=== PATIENT | male | born 1950 | race Caucasian/White ===

== ENCOUNTER 2023-03-18 01:15 | Emergency (ER) | payer OTHER ==
--- OUTSIDE RECORDS SUMMARY | 2023-03-18 01:19 | XMS REPORT | Continuity of Care Document ---
:1950 Author Organization [facility] Address [address] [facility] [address] [place] [address] Care Team Providers Name Role Phone ALEJO TINAJERO Attending Clinician Unavailable Anibal Zuleta Attending Clinician Unavailable Alejo Tinajero MD Attending Clinician Only, Adc Test Attending Clinician Unavailable Owen Linton MD Attending Clinician Naina Barnes RN Attending Clinician Unavailable Pob, Adc Lab Main Attending Clinician Unavailable Doctor Unassigned, [place] Attending Clinician Unavailable ALEJO TINAJERO Admitting Clinician Unavailable Benji Acosta Admitting Clinician Unavailable Alejo Tinajero MD Admitting Clinician Payers Payer Name Policy Type Policy Number Effective Date Expiration Date Amie almeida MEDICARE PART A [id number] 2013 \T\ B 00:00:00 [employer] INDEMNITY [id number] 2013 00:00:00 Problems This patient has no known problems. Allergies, Adverse Reactions, Alerts Allergy Allergy Status Severity Reaction(s) Onset Inactive Treating Comm ents Source Name Type Date Date Clinician NO KNOWN Drug Active [facility] Social History Social Habit Start Date Stop Date Quantity Comments Source Exposure to Not sure [facility] SARS-CoV-2 (event) Medica l Branch Sex Assigned At [facility] Tobacco use and 2020-06-01 2020-06-01 Never used [facility] [place] exposure 00:00:00 00:00:00 Medical Branch Smoking Status Start Date Stop Date Source Unknown if ever smoked [facility]it [facility] [place] Medical Branch Never smoker [facility] Medical Branch Medications Ordered Filled Start Stop Current Ordering Indication Dosage Frequency Signature Comments Components Source Medication Medication Date Date Medication? Clinician (SIG) Name Name losartan 50 2020-0 Yes 50mg Take 50 mg Univers mg tablet 9-16 by mouth ity of 17:16: daily. [place] 14 Indication Medical s: htn Branch ezetimibe 2020-0 Yes 10mg Take 10 mg Un rivka 10 mg 9-16 by mouth ity of tablet 17:16: at [place] 14 bedtime. Medical Indication Branch s: hyperlipid emia amLODIPine 2020-0 Yes 5mg Take 5 mg Un rivka 5 mg tablet 9-16 by mouth ity of 17:16: daily. [place] 14 Indication Medical s: htn Branch rosuvastati 2020-0 Yes 5mg Take 5 mg U nivers n 5 mg CpSP 9-16 by mouth ity of 17:16: at [place] 14 bedtime. Medical Indication Branch s: hyperlipid emia metoprolol 2020-0 Yes 100mg Take 100 Un rivka succinate 9-16 mg by ity of XL 100 mg 17:16: mouth [place] 24 hr 14 daily. Medical tablet Indication Branch s: hypertensi on sodium 2020-0 Yes PRN, Univers chloride -16 Starting ity of (NS) 16:36: Wed [place] injection 06/14/20 at [place] [address], Branch Until Discontinu ed, Routine, Intra-op neomycin-po 2020-0 Yes PRN, Univer s lymyxin-dex -16 Starting ity of amethasone 16:36: Fri (MAXITROL) 06/14/20 at [facility] [address] [place] [address] mg/g-10,000 Until unit/g-0.1 Discontinu % ed, ophthalmic Routine, ointment Intra-op gentamicin 2020-0 Yes PRN, Univers injection -16 Starting ity of 16:36: Fri [place] 06/14/20 at [place] [address], Branch Until Discontinu ed, AMARILYS, Intra-op dexamethaso 2020-0 Yes PRN, Univer s ne -16 Starting ity of (DECADRON 16:36: Wed [place] PHOSPHATE) 06/14/20 at Med ical injection 1136, Branch Until Discontinu ed, Routine, Intra-op ceFAZolin 2020-0 Yes PRN, Univers (ANCEF) 06-14 Starting ity of injection 16:35: Fri06/14/20 at [facility] 1135, Branch Until Discontinu ed, AMARILYS, Intra-op DUOVISC 2020-0 Yes PRN, Univers (DUOVISC 06-14 Starting ity of VISCO 16:26: Fri ELASTIC) 3 00 06/14/20 at [facility] ical %-4 %(0.5 1126, Branch mL) 1 % Until (0.55 mL) Discontinu intraocular ed, injection Routine, Intra-op carbachoL 2020-0 Yes PRN, Univers (MIOSTAT) 06-14 Starting ity of 0.01 % 16:26: Fri intraocular 00 06/14/20 at [place] d[place] injection 1126, Branch Until Discontinu ed, Routine, Intra-op Hyaluronida 2020-0 Yes PRN, Univer s se, Human 06-14 Starting ity of Recomb. 16:24: Fri [place] (HYLENEX) 06/14/20 at [facility] injection 1124, Branch Until Discontinu ed, Routine, Intra-op eye block 2020-0 Yes PRN, Univers syringe 11 06-14 Starting ity o f mL 16:24: Fri06/14/20 at [facility] 1124, Branch Until Discontinu ed, Intra-op EPINEPHrine 2020-0 Yes PRN, Univer s 1:1,000 (1 06-14 Starting ity o f mg/mL) 16:24: Fri (ADRENALIN) 06/14/20 at N[place] dical injection 1124, Branch Until Discontinu ed, Routine, Intra-op balanced 2020-0 Yes PRN, Univers salt irrig 06-14 Starting ity o f soln comb1 16:24: Fri (BSS PLUS) 06/14/20 at [facility] ical ophthalmic 1124, Branch solution Until 500 mL bag Discontinu ed, Routine, Intra-op Hyaluronida 2020-0 Yes PRN, Univer s se, Human 06-14 Starting ity of Recomb. 16:22: Fri [place] (HYLENEX) 06/14/20 at [facility] injection 1122, Branch Until Discontinu ed, Routine, Intra-op tetracaine 2020-0 Yes PRN, Univers (PONTOCAINE 06-14 Starting ity of ) 0.5 % 16:15: Fri [place] ophthalmic 00 06/14/20 at Med ical drops 1115, Branch Until Discontinu ed, Routine, Intra-op water for 2020-0 Yes PRN, Univers irrigation 06-14 Starting ity o f irrigation 16:12: Fri solution 06/14/20 at Medic al 1112, Branch Until Discontinu ed, Routine, Intra-op eye block 2020-0 Yes PRN, Univers syringe 11 06-14 Starting ity o f mL 16:08: Fri [place] 06/14/20 at Medical 1108, Branch Until Discontinu ed, Intra-op mydriatic 2020-0 2020- No .5mL 0.5 mL, Univ ers #5 06-14 Left Eye, ity of ophthalmic 16:00: 15:22 ONCE, 1 [place] as solution 00 :00 dose, Fri Medica l 0.5 mL 06/14/20 at [place] syringe 1100, Routine, DSU Pre-op lactated 2020-0 2020- No 1000mL at 20 [facility] rs ringers IV 06-14 mL/hr, ity of infusion 15:15: 15:08 1,000 mL, [place] as 1,000 mL 00 :00 IV Medical Infusion, [place] ONCE, 1 dose, Fri06/14/20 at 1015, Routine, DSU Pre-op losartan 50 2020-0 Yes 50mg Take 50 mg Univers mg tablet 9-14 by mouth ity of 19:41: daily. [place] [address] Indication Medical s: htn Branch ezetimibe 2020-0 Yes 10mg Take 10 mg Un rivka 10 mg 9-14 by mouth ity of tablet 19:41: at [place] [address] bedtime. Medical Indication Branch s: hyperlipid emia amLODIPine 2020-0 Yes 5mg Take 5 mg Un rivka 5 mg tablet 9-14 by mouth ity of 19:41: daily. [place] [address] Indication Medical s: htn Branch rosuvastati 2020-0 Yes 5mg Take 5 mg U nivers n 5 mg CpSP 9-14 by mouth ity of 19:41: at [place] [address] bedtime. Medical Indication Branch s: hyperlipid emia metoprolol 2020-0 Yes 100mg Take 100 Un rivka succinate 9-14 mg by ity of XL 100 mg 19:41: mouth [place] 24 hr 21 daily. Medical tablet Indication Branch s: hypertensi on losartan 50 2020-0 Yes 50mg Take 50 mg Univers mg tablet 05-31 by mouth ity of 18:43: daily. [place] 00 Indication Medical s: htn Branch ezetimibe 2020-0 Yes 10mg Take 10 mg Un rivka 10 mg 05-31 by mouth ity of tablet 18:43: at [place] 00 bedtime. Medical Indication Branch s: hyperlipid emia amLODIPine 2020-0 Yes 5mg Take 5 mg Un rivka 5 mg tablet 05-31 by mouth ity of 18:43: daily. [place] 00 Indication Medical s: htn Branch rosuvastati 2020-0 Yes 5mg Take 5 mg U nivers n 5 mg CpSP 05-31 by mouth ity of 18:43: at [place] 00 bedtime. Medical Indication Branch s: hyperlipid emia metoprolol 2020-0 Yes 100mg Take 100 Un rivka succinate -02 mg by ity of XL 100 mg 18:43: mouth [place] 24 hr 00 daily. Medical tablet Indication Branch s: hypertensi on lactated 2020-0 Yes 1000mL at 75 Univer s ringers IV 9-02 mL/hr, ity of infusion 18:30: 1,000 mL, [place] 1,000 mL 00 IV Medical Infusion, Branch CONTINUOUS , Starting Fri05/31/20 at 1330, Until Discontinu ed, Routine, PACU sodium 2020-0 Yes PRN, Univers chloride 05-31 Starting ity of (NS) 18:07: Fri05/31/20 [place] injection 00 at 1307, Medica l Until Branch Discontinu ed, Routine, Intra-op neomycin-po 2020-0 Yes PRN, Univer s lymyxin-dex 05-31 Starting ity of amethasone 18:07: Fri05/31/20 [place] (MAXITROL) 00 at 1307, Medic al 3.5 Until Branch mg/g-10,000 Discontinu unit/g-0.1 ed, % Routine, ophthalmic Intra-op ointment gentamicin 2020-0 Yes PRN, Univers injection 05-31 Starting ity of 18:06: Fri05/31/20 [place] 00 at 1306, Medical Until Branch Discontinu ed, AMARILYS, Intra-op EPINEPHrine 2020-0 Yes PRN, Univer s 1:1,000 (1 05-31 Starting ity o f mg/mL) 18:06: 05/31/20 [place] (ADRENALIN) 00 at 1306, Medi owen injection Until Branch Discontinu ed, Routine, Intra-op DUOVISC 2020-0 Yes PRN, Univers (DUOVISC 05-31 Starting ity of VISCO 18:06: Fri05/31/20 [place] ELASTIC) 3 00 at 1306, Medic al %-4 %(0.5 Until Branch mL) 1 % Discontinu (0.55 mL) ed, intraocular Routine, injection Intra-op dexamethaso 2019-0 Yes PRN, Univer s ne 05-31 Starting ity of (DECADRON 18:05: 05/31/20 [place] PHOSPHATE) 00 at 1305, Medic al injection Until Branch Discontinu ed, Routine, Intra-op ceFAZolin 2019-0 Yes PRN, Univers (ANCEF) 05-31 Starting ity of injection 18:05: 05/31/20 [place] 00 at 1305, Medical Until Branch Discontinu ed, AMARILYS, Intra-op carbachoL 2019-0 Yes PRN, Univers (MIOSTAT) 05-31 Starting ity of 0.01 % 18:05: 05/31/20 [place] intraocular 00 at 1305, Medi owen injection Until Branch Discontinu ed, Routine, Intra-op balanced 2019-0 Yes PRN, Univers salt irrig 05-31 Starting ity o f soln comb1 18:04: 05/31/20 [place] (BSS PLUS) 00 at 1304, Medic al ophthalmic Until Branch solution Discontinu 500 mL bag ed, Routine, Intra-op water for 2019-0 Yes PRN, Univers irrigation 05-31 Starting ity o f irrigation 17:53: 05/31/20 [place] solution 00 at 1253, Medical Until Branch Discontinu ed, Routine, Intra-op Hyaluronida 2019-0 Yes PRN, Univer s se, Human 05-31 Starting ity of Recomb. 17:53: 05/31/20 [place] (HYLENEX) 00 at 1253, Medica l injection Until Branch Discontinu ed, Routine, Intra-op eye block 2019-0 Yes PRN, Univers syringe 11 05-31 Starting ity o f mL 17:53: 05/31/20 [place] 00 at 1253, Medical Until Branch Discontinu ed, Intra-op lactated 2020-0 2020- No 1000mL at 20 Unive rs ringers IV 05-31 mL/hr, ity of infusion 16:30: 16:21 1,000 mL, [place] as 1,000 mL 00 :00 IV Medical Infusion, [place] ONCE, 1 dose, 05/31/20 at 1130, Routine, DSU Pre-op mydriatic 2020-0 2020- No .5mL 0.5 mL, Univ ers #5 05-31 Right Eye, ity of ophthalmic 16:30: 16:22 ONCE, 1 [place] solution 00 :00 dose, Fri Medica l 0.5 mL 05/31/20 at Branch syringe 1130, Routine, DSU Pre-op metoprolol 2020-0 Yes 100mg Take 100 Un rivka succinate 9-01 mg by ity of XL 100 mg 12:50: mouth [place] 24 hr 39 daily. Medical tablet Indication Branch s: hypertensi on metoprolol 2020-0 Yes 100mg Take 100 Un rivka succinate 9-01 mg by ity of XL 100 mg 12:50: mouth [place] 24 hr 39 daily. Medical tablet Indication Branch s: hypertensi on losartan 50 2020-0 Yes 50mg Take 50 mg Univers mg tablet -01 by mouth ity of 12:50: daily. [place] [address] Indication Medical s: htn Branch ezetimibe 2020-0 Yes 10mg Take 10 mg Un rivka 10 mg -01 by mouth ity of tablet 12:50: at [place] [address] bedtime. Medical Indication Branch s: hyperlipid emia amLODIPine 2020-0 Yes 5mg Take 5 mg Un rivka 5 mg tablet -01 by mouth ity of 12:50: daily. [place] [address] Indication Medical s: htn Branch rosuvastati 2020-0 Yes 5mg Take 5 mg U nivers n 5 mg CpSP -01 by mouth ity of 12:50: at [place] [address] bedtime. Medical Indication Branch s: hyperlipid emia losartan 50 2020-0 Yes 50mg Take 50 mg Univers mg tablet -01 by mouth ity of 12:50: daily. [place] [address] Indication Medical s: htn Branch ezetimibe 2020-0 Yes 10mg Take 10 mg Un rivka 10 mg 9-01 by mouth ity of tablet 12:50: at [place] [address] bedtime. Medical Indication Branch s: hyperlipid emia amLODIPine 2019-0 Yes 5mg Take 5 mg Un rivka 5 mg tablet -01 by mouth ity of 12:50: daily. [place] [address] Indication Medical s: htn Branch rosuvastati 2020-0 Yes 5mg Take 5 mg U nivers n 5 mg CpSP 9- by mouth ity of 12:50: at [place] [address] bedtime. Medical Indication Branch s: hyperlipid emia Vital Signs Vital Name Observation Time Observation Value Comments Source Systolic blood 2020-06-14 16:57:00 126 mm[Hg] Univer sity of pressure [facility] Diastolic blood 2020-06-14 16:57:00 70 mm[Hg] Unive rsity of [facility] Heart rate 2020-06-14 16:57:00 59 /min [facility] Body temperature 2020-06-14 16:57:00 36.67 [facility] Respiratory rate 2020-06-14 16:57:00 13 /min [facility] Oxygen saturation in 2020-06-14 16:57:00 93 /min University of Arterial blood by [place] [employer] [facility] Pulse oximetry Branch Body height 2020-06-07 18:18:00 177.8 cm [facility] Body weight 2020-06-07 18:18:00 106.1 kg [facility] BMI 2020-06-07 18:18:00 33.56 kg/m2 [facility] Systolic blood 2020-05-31 18:30:00 141 mm[Hg] Univer sity of pressure [facility] Diastolic blood 2020-05-31 18:30:00 77 mm[Hg] Unive rsity of pressure [facility] Heart rate 2020-05-31 18:30:00 58 /min [facility] Respiratory rate 2020-05-31 18:30:00 15 /min [facility] Oxygen saturation in 2020-05-31 18:30:00 96 /min University of Arterial blood by [place] [employer] [facility] Pulse oximetry Branch Body temperature 2020-05-31 18:18:[address] [facility] Body height 2020-05-30 14:15:00 177.8 cm [facility] Body weight 2020-05-30 14:15:00 106.142 kg [facility] BMI 2020-05-30 14:15:00 33.58 kg/m2 [facility] Procedures Procedure Date / Time Performed Performing Clinician Sour e CONSENT/REFUSAL FOR 2020-06-13 15:47:44 Doctor Unassigned, [facility] Branch TREATMENT ASSIGNMENT OF BENEFITS 2020-06-13 15:46:58 Doctor Unassigned, No [facility] NOTICE OF PRIVACY 2020-06-13 15:46:42 Doctor Unassigned, No Univ [facility] CONSENT/REFUSAL FOR 2020-06-13 15:46:12 Doctor Unassigned, [facility] Medical Branch TREATMENT ASSIGNMENT OF BENEFITS 2020-06-13 15:45:55 Doctor Unassigned, No [facility] ASSIGNMENT OF BENEFITS 2020-05-26 17:40:57 Doctor Unassigned, No [facility] Encounters Start End Encounter Admission Attending Care Care Encounter Source Date/Time Date/Time Type Type Clinicians Facility Department ID 2021-07-27 [facility] [id number] Univers 16:40:44 ALEJO [facility] 2021-07-27 [facility]patient [facility] [id number] Univers 15:10:30 ALEJO [facility] 2021-10-31 2021-10-31 Outpatient JUAN FRANCISCO Méndez [facility] [id number] [facility] 08:14:00 08:14:00 Anibal Akers [facility] 2020-06-14 2020-06-14 [facility] [id number] Univers 10:00:00 12:15:00 Encounter Alejo Navarro [id number] [place] [id number] [place] [id number] [facility] 071 Branch 2020-06-13 2020-06-13 Laboratory Only, Adc Test [facility] [id number] Univers 10:46:39 11:01:39 Only Owen Linton [place] [id number] ity of [place] [id number] [place] [id number] [address] 2020-06-13 2020-06-13 Outpatient R [facility] [id number] Univers 11:00:00 11:00:00 ity of [facility] 2020-05-31 2020-05-31 [facility] [id number] Univers 11:11:00 13:37:00 Encounter Alejo Navarro [id number] [place] [id number] [place] [id number] [address] 2020-05-30 2020-05-30 Outpatient R [facility] [id number] Univers 09:30:00 09:30:[address] [facility] 2020-05-30 2020-05-30 Laboratory Only, Adc Test [facility] [id number] Univers 09:01:29 09:16:29 Only Alejo Tinajero Misael Navarro [id number] 0 [place] [id number] [place] [id number] [address] 2020-05-30 2020-05-30 Letter MARIA E Barnes [id number] Univers 00:00:00 00:00:00 (Out) Naina ROBLES [id number] it y of HOSPITAL [id number] [place] [id number] [address] 2020-05-26 2020-05-26 [facility] [id number] Univers 13:00:00 13:00:[address] [facility] 2020-05-26 2020-05-26 [employer] Operator Ej, Adc Lab Main [facility] [id number] Univers 12:42:38 12:57:38 Visit JorgeAlejo [id number] 0 it[place] of [place] [id number] [place] [phone] [address] 2020-05-26 2020-05-26 Orders Doctor MARIA E [id number] Univers 00:00:00 00:00:00 Only Unassigned, MARGARET [id number] ity of [place] [facility] [id number] [place] [id number] [place] [address] Branch Results This patient has no known results. Notes Date/Time Note Provider Source 2021-11-02 13:20:00-00:00 [id number] [facility] PATIENT NAME: KELVIN FRIEND ADMIT DATE: ACCOUNT NO: [id number] ROOM NO: AGE: 71 REPORT TYPE: STRESS EKG REPORT. SEX: M DATE OF : 46 ADMITTING PHYSICIAN: ATTENDING PHYSICIAN:Anibal Zuleta MD STUDY DATE: 10/31/2021 NUCLEAR CARDIOLOGY STRESS TEST REPORT REQUESTING PHYSICIAN: Anibal Zuleta MD REFERRING PHYSICIAN: Benji Acosta MD REASON: Coronary artery disease, status post byp ass surgery. PROCEDURE NOTE: A 10 mCi of technetium-99m Myovi ew was injected intravenously followed by multiplane rotation SPECT im aging. Following this, the patient was stressed on the treadmill following the Yg pr otocol where the patient exercised for 6 minutes achieving 120 beats per minute, which is 82% of predicted maximal heart rate or an equivalent of 7 METs. At peak exercise, 30 mCi of technetium-99m Myovie w was injected intravenously followed by multiplane rotation SPECT imaging. On the treadmill, the pa terrynt had a normal blood pressure response to exercise. Resting EKG showed normal si nus rhythm at 86 beats per minute and with exercise, junctional ST changes were noted. The electrocar diographic stress test was indeterminate for ischemia. The rest and post-stress tomographic images were physiologic. CONCLUSION: 1. Normal exercise technetium-99m Myoview study without any evidence of ischemia. 2. Normal left ventricular size and function wit h left ventricular ejection fraction of 53% and normal left ventricular wall motion. 3. Compared with study done on 04/03/2018, ische gabe is no longer seen. Dictated By: Anibal Zuleta MD WT: STRESS:V.CPS/JESCA/NTS Conf#: [id number]/DID#: [id number] PATIENT NAME: KELVIN FRIEND ACCOUNT #: [id number] ddt: 11/02/21 1320 Anibal Zuleta MD tdt: 11/02/21 1507 Authenticated and Edited by Anibal reno MD On 11/03/21 1:06:57 PM Electronically Signed by Anibal Zuleta MD o n 11/03/21 at 0113 PATIENT NAME: KELVIN FRIEND ACCOUNT #: [id number] ddt: 11/02/21 1320 Anibal Zuleta MD tdt: 11/02/21 1507
[2023-03-18] MEDS ORDERED: GLUCAGON 1 MG/VIAL ONE (01:48)
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
[2023-03-18 03:01] VITALS: TEMP 98.2
[2023-03-18 03:11] VITALS: BP 161/89; O2SAT 98
--- NOTE | 2023-03-18 15:38 | RAD REPORT ---
EXAM DESCRIPTION: RAD - Chest Single View - 03/18/2023 1:40 am CLINICAL HISTORY: COUGH TECHNIQUE: AP chest COMPARISON: None available for comparison FINDINGS: CHEST: Heart: : Cardiac silhouette at the upper limits of normal status post median sternotomy. Lungs: Question retrocardiac airspace disease and lucency in the left lung base of unclear etiology. Recommend further evaluation with follow-up PA and lateral radiographs. Mediastinum: Unremarkable Pleura: No appreciable effusion. Bones: Intact IMPRESSION: 1. Question retrocardiac airspace disease and lucency in the left lung base of unclear etiology. Recommend further evaluation with follow-up PA and lateral radiographs. 2. Cardiac silhouette at the upper limits of normal status post median sternotomy. Electronically signed by: Jorje Luo MD 03/18/2023 1:59 AM CDT Due to temporary technical issues with the PACS/Fluency reporting system, reports are being signed by the in house radiologists without review as a courtesy to insure prompt reporting. The interpreting radiologist is fully responsible for the content of the report.
== END 2023-03-18 02:51 | disposition home or self-care (01) ==
LOC: ER 01:15
DX: T18.128A Food in esophagus causing other injury, initial encounter (principal); Z88.8 Allergy status to other drugs, medicaments and biological substances
CPT/HCPCS: 71045; J1610

== ENCOUNTER 2023-06-01 18:06 | Emergency (ER) | payer OTHER ==
--- OUTSIDE RECORDS SUMMARY | 2023-06-01 18:09 | XMS REPORT | Continuity of Care Document ---
:1950 Author Organization [facility] Address [address] [facility] [address] [place] [address] Care Team Providers Name Role Phone ALEJO TINAJERO Attending Clinician Unavailable Anibal Zuleta Attending Clinician Unavailable Alejo Tinajero MD Attending Clinician Only, Adc Test Attending Clinician Unavailable Owen Linton MD Attending Clinician Molly SALAZAR, Naina Patiño Attending Clinician Unavailable Pob, Adc Lab Main Attending Clinician Unavailable Doctor Unassigned, [place] Attending Clinician Unavailable ALEJO TINAJERO Admitting Clinician Unavailable Benji Acosta Admitting Clinician Unavailable Alejo Tinajero MD Admitting Clinician Payers Payer Name Policy Type Policy Number Effective Date Expiration Date Amie almeida MEDICARE PART A [id number] 2013 \T\ B 00:00:00 [employer] INDEMNITY [id number] 2013 00:00:00 Problems This patient has no known problems. Allergies, Adverse Reactions, Alerts Allergy Allergy Status Severity Reaction(s) Onset Inactive Treating Comm ents Source Name Type Date Date Clinician NO KNOWN Drug Active [facility] Social History Social Habit Start Date Stop Date Quantity Comments Source Exposure to Not sure [facility] SARS-CoV-2 (event) Medica l Branch Sex Assigned At [facility] Tobacco use and 2020-06-01 2020-06-01 Never used [facility] [place] exposure 00:00:00 00:00:00 Medical Branch Smoking Status Start Date Stop Date Source Unknown if ever smoked [facility] [place] [facility] Never smoker [facility] Medical Branch Medications Ordered Filled Start Stop Current Ordering Indication Dosage Frequency Signature Comments Components Source Medication Medication Date Date Medication? Clinician (SIG) Name Name losartan 50 2020-0 Yes 50mg Take 50 mg Univers mg tablet 9-16 by mouth ity of 17:16: daily. [place] 14 Indication Medical s: htn Branch ezetimibe 2020-0 Yes 10mg Take 10 mg Un rivka 10 mg 9-16 by mouth ity of tablet 17:16: at [place] 14 bedtime. Medical Indication Branch s: hyperlipid emia amLODIPine 2020-0 Yes 5mg Take 5 mg Un rivka 5 mg tablet 9-16 by mouth ity of 17:16: daily. [place] 14 Indication Medical s: htn Branch rosuvastati 2020-0 Yes 5mg Take 5 mg U nivers n 5 mg CpSP 9-16 by mouth ity of 17:16: at [place] 14 bedtime. Medical Indication Branch s: hyperlipid emia metoprolol 2020-0 Yes 100mg Take 100 Un rivka succinate 9-16 mg by ity of XL 100 mg 17:16: mouth [place] 24 hr 14 daily. Medical tablet Indication Branch s: hypertensi on sodium 2020-0 Yes PRN, Univers chloride -16 Starting ity of (NS) 16:36: Wed [place] injection 06/14/20 at [place] [address], Branch Until Discontinu ed, Routine, Intra-op neomycin-po 2020-0 Yes PRN, Univer s lymyxin-dex -16 Starting ity of amethasone 16:36: Fri (MAXITROL) 06/14/20 at [facility] [address] [place] [address] mg/g-10,000 Until unit/g-0.1 Discontinu % ed, ophthalmic Routine, ointment Intra-op gentamicin 2020-0 Yes PRN, Univers injection -16 Starting ity of 16:36: Fri [place] 06/14/20 at [place] [address], Branch Until Discontinu ed, AMARILYS, Intra-op dexamethaso 2020-0 Yes PRN, Univer s ne -16 Starting ity of (DECADRON 16:36: Fri [place] PHOSPHATE) 06/14/20 at Med ical injection 1136, Branch Until Discontinu ed, Routine, Intra-op ceFAZolin 2020-0 Yes PRN, Univers (ANCEF) 06-14 Starting ity of injection 16:35: Fri06/14/20 at [facility] 1135, Branch Until Discontinu ed, AMARILYS, Intra-op DUOVISC 2020-0 Yes PRN, Univers (DUOVISC 06-14 Starting ity of VISCO 16:26: Fri ELASTIC) 3 00 06/14/20 at [facility] ical %-4 %(0.5 1126, Branch mL) 1 % Until (0.55 mL) Discontinu intraocular ed, injection Routine, Intra-op carbachoL 2020-0 Yes PRN, Univers (MIOSTAT) 06-14 Starting ity of 0.01 % 16:26: Fri intraocular 00 06/14/20 at [place] injection 1126, Branch Until Discontinu ed, Routine, Intra-op Hyaluronida 2020-0 Yes PRN, Univer s se, Human 06-14 Starting ity of Recomb. 16:24: Fri (HYLENEX) 06/14/20 at [facility] injection 1124, Branch Until Discontinu ed, Routine, Intra-op eye block 2020-0 Yes PRN, Univers syringe 11 06-14 Starting ity o f mL 16:24: Fri06/14/20 at [facility] 1124, Branch Until Discontinu ed, Intra-op EPINEPHrine 2020-0 Yes PRN, Univer s 1:1,000 (1 06-14 Starting ity o f mg/mL) 16:24: Fri (ADRENALIN) 06/14/20 at [place] dical injection 1124, Branch Until Discontinu ed, Routine, Intra-op balanced 2020-0 Yes PRN, Univers salt irrig 06-14 Starting ity o f soln comb1 16:24: Fri (BSS PLUS) 06/14/20 at [facility] ical ophthalmic 1124, Branch solution Until 500 mL bag Discontinu ed, Routine, Intra-op Hyaluronida 2020-0 Yes PRN, Univer s se, Human 06-14 Starting ity of Recomb. 16:22: Fri [place] (HYLENEX) 06/14/20 at [facility] injection 1122, Branch Until Discontinu ed, [...] 1108, Branch Until Discontinu ed, Intra-op mydriatic 2019-0 2020- No .5mL 0.5 mL, Univ ers #5 06-14 Left Eye, ity of ophthalmic 16:00: 15:22 ONCE, 1 [place] as solution 00 :00 dose, Fri Medica l 0.5 mL 06/14/20 at [place] syringe 1100, Routine, DSU Pre-op lactated 2020-0 2020- No 1000mL at 20 [facility] rs ringers IV 06-14 mL/hr, ity of infusion 15:15: 15:08 1,000 mL, Zachary as 1,000 mL 00 :00 IV Medical Infusion, [place] ONCE, 1 dose, 06/14/20 at 1015, Routine, DSU Pre-op losartan 50 2020-0 Yes 50mg Take 50 mg Univers mg tablet 9-14 by mouth ity of 19:41: daily. [place] [address] Indication Medical s: htn Branch ezetimibe 2020-0 Yes 10mg Take 10 mg Un rivka 10 mg 9-14 by mouth ity of tablet 19:41: at [place] [address] bedtime. Medical Indication Branch s: hyperlipid emia amLODIPine 2020-0 Yes 5mg Take 5 mg Un rivka 5 mg tablet 9-14 by mouth ity of 19:41: daily. [place] [address] Indication Medical s: htn Branch rosuvastati 2020-0 Yes 5mg Take 5 mg U nivers n 5 mg CpSP 9-14 by mouth ity of 19:41: at [place] [address] bedtime. Medical Indication Branch s: hyperlipid emia metoprolol 2020-0 Yes 100mg Take 100 Un rivka succinate 9-14 mg by ity of XL 100 mg 19:41: mouth [place] 24 hr 21 daily. Medical tablet Indication Branch s: hypertensi on losartan 50 2020-0 Yes 50mg Take 50 mg Univers mg tablet 05-31 by mouth ity of 18:43: daily. [place] 00 Indication Medical s: htn Branch ezetimibe 2020-0 Yes 10mg Take 10 mg Un rivka 10 mg 05-31 by mouth ity of tablet 18:43: at [place] 00 bedtime. Medical Indication Branch s: hyperlipid emia amLODIPine 2020-0 Yes 5mg Take 5 mg Un rivka 5 mg tablet 05-31 by mouth ity of 18:43: daily. [place] 00 Indication Medical s: htn Branch rosuvastati 2020-0 Yes 5mg Take 5 mg U nivers n 5 mg CpSP 05-31 by mouth ity of 18:43: at [place] 00 bedtime. Medical Indication Branch s: hyperlipid emia metoprolol 2020-0 Yes 100mg Take 100 Un rivka succinate 02 mg by ity of XL 100 mg 18:43: mouth [place] 24 hr 00 daily. Medical tablet Indication [...] ne 05-31 Starting ity of (DECADRON 18:05: Fri05/31/[place] PHOSPHATE[place] 00 at 1305, Medic [...] 1,000 mL 00 :00 IV Medical Infusion, [place] ONCE, 1 dose, 05/31/20 at 1130, Routine, [...] ity of XL 100 mg 12:50: mouth [place] 24 hr 39 daily. Medical tablet Indication Branch s: hypertensi on metoprolol 2020-0 Yes 100mg Take 100 Un rivka succinate 9-01 mg by ity of XL 100 mg 12:50: mouth [place] 24 hr 39 daily. Medical tablet Indication Branch s: hypertensi on losartan 50 2020-0 Yes 50mg Take 50 mg Univers mg tablet -01 by mouth ity of 12:50: daily. [place] [address] Indication Medical s: htn Branch ezetimibe 2020-0 Yes 10mg Take 10 mg Un rivka 10 mg -01 by mouth ity of tablet 12:50: at [place] [address] bedtime. Medical Indication Branch s: hyperlipid emia amLODIPine 2020-0 Yes 5mg Take 5 mg Un rivka 5 mg tablet -01 by mouth ity of 12:50: daily. [place] [address] Indication Medical s: htn Branch rosuvastati 2020-0 Yes 5mg Take 5 mg U nivers n 5 mg CpSP -01 by mouth ity of 12:50: at [place] [address] bedtime. Medical Indication Branch s: hyperlipid emia losartan 50 2020-0 Yes 50mg Take 50 mg Univers mg tablet -01 by mouth ity of 12:50: daily. [place] [address] Indication Medical s: htn Branch ezetimibe 2020-0 Yes 10mg Take 10 mg Un rivka 10 mg 9-01 by mouth ity of tablet 12:50: at [place] [address] bedtime. Medical Indication Branch s: hyperlipid emia amLODIPine 2019-0 Yes 5mg Take 5 mg Un rivka 5 mg tablet -01 by mouth ity of 12:50: daily. [place] [address] Indication Medical s: htn Branch rosuvastati 2019-0 Yes 5mg Take 5 mg U nivers n 5 mg CpSP 9-01 by mouth ity of 12:50: at [place] [address] bedtime. Medical Indication Branch s: hyperlipid emia Vital Signs Vital Name Observation Time Observation Value Comments Source Systolic blood 2020-06-14 16:57:00 126 mm[Hg] Univer sity of pressure [facility] Diastolic blood 2020-06-14 16:57:00 70 mm[Hg] Unive rsity of [facility] Heart rate 2020-06-14 16:57:00 59 /min [facility] Body temperature 2020-06-14 16:57:00 36.67 [facility] Respiratory rate 2020-06-14 16:57:00 13 /min [facility] Oxygen saturation in 2020-06-14 16:57:00 93 /min University of Arterial blood by [place] [facility] Pulse oximetry Branch Body height 2020-06-07 18:18:00 177.8 cm [facility] Body weight 2020-06-07 18:18:00 106.1 kg [facility] BMI 2020-06-07 18:18:00 33.56 kg/m2 [facility] Systolic blood 2020-05-31 18:30:00 141 mm[Hg] Univer sity of pressure [facility] Diastolic blood 2020-05-31 18:30:00 77 mm[Hg] Unive rsity of pressure [facility] Heart rate 2020-05-31 18:30:00 58 /min [facility] Respiratory rate 2020-05-31 18:30:00 15 /min [facility] Oxygen saturation in 2020-05-31 18:30:00 96 /min University of Arterial blood by [place] [employer] owen Pulse oximetry Branch Body temperature 2020-05-31 18:18:00 36.78 Breanne [facility] Body height 2020-05-30 14:15:00 177.8 cm [facility] Body weight 2020-05-30 14:15:00 106.142 kg [facility] BMI 2020-05-30 14:15:00 33.58 kg/m2 [facility] Procedures Procedure Date / Time Performed Performing Clinician Sour e CONSENT/REFUSAL FOR 2020-06-13 15:47:44 Doctor Unassigned, [facility] Name Medical Branch TREATMENT ASSIGNMENT OF BENEFITS 2020-06-13 15:46:58 Doctor Unassigned, No [facility] NOTICE OF PRIVACY 2020-06-13 15:46:42 Doctor Unassigned, No Univ [facility] CONSENT/REFUSAL FOR 2020-06-13 15:46:12 Doctor Unassigned, No [facility] AND [facility] Medical Branch TREATMENT ASSIGNMENT OF BENEFITS 2020-06-13 15:45:55 Doctor Unassigned, No [facility] ASSIGNMENT OF BENEFITS 2020-05-26 17:40:57 Doctor Unassigned, No [facility] Encounters Start End Encounter Admission Attending Care Care Encounter Source Date/Time Date/Time Type Type Clinicians Facility Department ID 2021-07-27 [facility] [id number] Univers 16:40:44 ALEJO [facility] 2021-07-27 Outpatient Penny [facility] [id number] Univers 15:10:30 ALEJO [facility] 2021-10-31 2021-10-31 Outpatient JUAN FRANCISCO Méndez [facility] [id number] [facility] 08:14:00 08:14:00 Anibal Akers [facility] 2020-06-14 2020-06-14 [facility] [id number] Univers 10:00:00 12:15:00 Encounter Alejo Navarro [id number] [place] [id number] [place] [id number] [facility] 071 Branch 2020-06-13 2020-06-13 Laboratory Only, Adc Test [facility] 1.2.840. 114 [id number] Univers 10:46:39 11:01:39 Only Owen [place] [id number] ity [id number] [place] [id number] [address] 2020-06-13 2020-06-13 Outpatient R [facility] [id number] Univers 11:00:00 11:00:00 ity of [facility] 2020-05-31 2020-05-31 [facility] [id number] Univers 11:11:00 13:37:00 Encounter Alejo Navarro [id number] [id number] [id number] [address] 2020-05-30 2020-05-30 Outpatient R [facility] [id number] Univers 09:30:00 09:30:00 ALEJO floresvalerie [facility] 2020-05-30 2020-05-30 Laboratory Only, Adc Test [facility] 1.2.840. [id number] Univers 09:01:29 09:16:29 Only Alejo Tinajero Misael Navarro [id number] 0 ity of [id number] [place] [id number] [address] 2020-05-30 2020-05-30 Letter MARIA E Barnes [id number] Univers 00:00:00 00:00:00 (Out) Naina ROBLES [id number] it y of HOSPITAL [id number] [place] [id number] [address] 2020-05-26 2020-05-26 Outpatient R [facility] [id number] Univers 13:00:00 13:00:00 ALEJO rey [facility] 2020-05-26 2020-05-26 Coal Equipment Operator Ej, Adc Lab Main [facility] 1.2.8 40.114 [id number] Univers 12:42:38 12:57:38 Visit Jorge Alejo Navarro [id number] 0 ity [id number] [id number] [address] 2020-05-26 2020-05-26 Orders Doctor MARIA E [id number] Univers 00:00:00 00:00:00 Only Unassigned, MARGARET [id number] ity of [place] [facility] [id number] [place] [id number] [place] [address] Branch Results This patient has no known results. Notes Date/Time Note Provider Source 2021-11-02 13:20:00-00:00 [id number] [facility] PATIENT NAME: KELVIN FRIEND ADMIT DATE: ACCOUNT NO: [id number] ROOM NO: AGE: 71 REPORT TYPE: STRESS [...] By: Anibal Zuleta MD WT: STRESS:V.CPS/JESCA/NTS Conf#: [id number]/DID#: [id number] PATIENT NAME: KELVIN FRIEND ACCOUNT #: [id number] ddt: 11/02/21 1320 Anibal Zuleta MD tdt: 11/02/21 1507 Authenticated and Edited by Anibal reno MD On 11/03/21 1:06:57 PM Electronically Signed by MD julia Cloud n 11/03/21 at 0113 PATIENT NAME: KELVIN FRIEND ACCOUNT #: [id number] ddt: 11/02/21 1320 Anibal Zuleta MD tdt: 11/02/21 1507
--- NOTE | 2023-06-01 18:47 | RAD REPORT ---
EXAM DESCRIPTION: RAD - Chest Single View - 06/01/2023 6:37 pm CLINICAL HISTORY: CHEST PAIN COMPARISON: Chest Single View dated 03/18/2023; CHEST SINGLE VIEW dated 08/16/2012 FINDINGS: Lines: None. Lungs: No evidence of edema or pneumonia. Pleural: No significant pleural effusions or pneumothorax. Cardiac: Similar size and configuration. Mediastinum: Within normal limits. Bones: No acute fractures. Sternotomy. Other: None IMPRESSION: No acute cardiopulmonary disease.
[2023-06-01] MEDS ORDERED: ONDANSETRON 4 MG/2 ML VIAL ONE (18:57)
[2023-06-01] MEDS ORDERED: NA CHLORIDE 0.9% 500 ML ONE (18:57)
[2023-06-01] MEDS ORDERED: GLUCAGON 1 MG/VIAL ONE (18:58)
[2023-06-01] MEDS ORDERED: FAMOTIDINE 20 MG/2 ML VIAL IV ONE (18:58)
[2023-06-01 18:59] LABS: Hematocrit 45.8 % (39.6-49.0); Lymphocytes % 18.7 % (15.3-44.8); MCV 87.7 fL (80-100); MPV 7.8 fL (7.6-11.3); Platelets 171 thou/uL (152-406); RBC Red Blood Cell Count 5.22 M/uL (4.33-5.43)
[2023-06-01 19:00] LABS: Absolute Lymphocytes (CBC) 1.2 K/uL (0.7-4.9)
[2023-06-01 19:13] LABS: Albumin 4.1 g/dL (3.4-5.0); Bilirubin Direct 0.2 mg/dL (0-0.2); Bilirubin Indirect, Calculated 0.4 mg/dL (0.2-0.8); Bilirubin Total 0.6 mg/dL (0.2-1.0); Magnesium 2.1 mg/dL (1.6-2.4); Potassium 4.1 mEq/L (3.5-5.1); Protein, Total 6.9 g/dL (6.4-8.2); Troponin High Sensitivity 11.5 pg/mL (<58.9)
[2023-06-01] MEDS ORDERED: MAGNES/ALUMIN/SIMET 30ML UCUP ONE (20:29)
[2023-06-01] MEDS ORDERED: METOCLOPRAMIDE 10 MG/2mL INJ ONE (21:57)
[2023-06-01] MEDS ORDERED: DIAZEPAM 10 MG/2 ML INJ SYRINGE ONE (21:57)
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
[2023-06-01 23:15] VITALS: TEMP 98.1
[2023-06-01 23:37] VITALS: BP 176/81; O2SAT 97
[2023-06-02] MEDS ORDERED: POTASSIUM 25 MEQ EFFERV TAB ONE (00:04)
--- NOTE | 2023-06-03 16:51 | EKG ---
Test Date: 2023-06-01 Test Time: 19:20:34 Grounds Keeper: TAMMY MEASUREMENT RESULTS: Intervals: Rate: 65 IA: 206 QRSD: 104 QT: 414 QTc: 430 [place]: P: 56 IA: 206 QRS: 27 T: 96 INTERPRETIVE STATEMENTS: Poor data quality, interpretation may be adversely affected Normal sinus rhythm Possible Left atrial enlargement Anterior infarct, age undetermined Abnormal ECG Compared to ECG 08/16/2012 15:08:09 No significant changes Electronically Signed On 06-03-23 16:45:21 CDT by Qasim Haas
== END 2023-06-01 23:06 | disposition home or self-care (01) ==
LOC: ER 18:06
DX: K21.9 Gastro-esophageal reflux disease without esophagitis (principal); I10 Essential (primary) hypertension; Z88.8 Allergy status to other drugs, medicaments and biological substances
CPT/HCPCS: 96361; 93005; 85025; 80048; 36415; 83735; 80076; 84484; 71045; 96375; 96374; 99284; J1610; J2765; J3360; J2405; J7040

== ENCOUNTER 2023-08-07 03:45 | Emergency (ER) | payer OTHER ==
--- OUTSIDE RECORDS SUMMARY | 2023-08-07 03:47 | XMS REPORT | Continuity of Care Document ---
:1950 Author Organization [facility] Address [address] [place] [address] Care Team Providers Name Role Phone ALEJO TINAJERO Attending Clinician Unavailable Anibal Zuleta Attending Clinician Unavailable Alejo Tinajero MD Attending Clinician Only, Adc Test Attending Clinician Unavailable Owen Linton MD Attending Clinician Molly SALAZAR, Naina Patiño Attending Clinician Unavailable Pob, Adc Lab Main Attending Clinician Unavailable Doctor Unassigned, Mace[place] Attending Clinician Unavailable ALEJO TINAJERO Admitting Clinician Unavailable Benji Acosta Admitting Clinician Unavailable Alejo Tinajero MD Admitting Clinician Payers Payer Name Policy Type Policy Number Effective Date Expiration Date Amie almeida MEDICARE PART A [id number] 2013 \T\ B 00:00:00 [employer] INDEMNITY [id number] 2013 00:00:00 Problems This patient has no known problems. Allergies, Adverse Reactions, Alerts Allergy Allergy Status Severity Reaction(s) Onset Inactive Treating Comm ents Source Name Type Date Date Clinician NO KNOWN Drug Active [facility] Social History Social Habit Start Date Stop Date Quantity Comments Source Exposure to Not sure [facility] SARS-CoV-2 (event) Medica l Branch Sex Assigned At [facility] Tobacco use and 2020-06-01 2020-06-01 Never used [facility] [place] exposure 00:00:00 00:00:00 Medical Branch Smoking Status Start Date Stop Date Source Unknown if ever smoked [facility] [place] [facility] Never smoker [facility] Medications Ordered Filled Start Stop Current Ordering Indication Dosage Frequency Signature Comments Components Source Medication Medication Date Date Medication? Clinician (SIG) Name Name losartan 50 2020-0 Yes 50mg Take 50 mg Univers mg tablet 9-16 by mouth ity of 17:16: daily. [place] 14 Indication Medical s: htn Branch ezetimibe 2020-0 Yes 10mg Take 10 mg Un rivka 10 mg 9-16 by mouth ity of tablet 17:16: at [place] 14 bedtime. Medical Indication Branch s: hyperlipid emia amLODIPine 2020-0 Yes 5mg Take 5 mg Un rivka 5 mg tablet 9-16 by mouth ity of 17:16: daily. [place] 14 Indication Medical s: htn Branch rosuvastati 2020-0 Yes 5mg Take 5 mg U nivers n 5 mg CpSP 9-16 by mouth ity of 17:16: at [place] 14 bedtime. Medical Indication Branch s: hyperlipid emia metoprolol 2020-0 Yes 100mg Take 100 Un rivka succinate 9-16 mg by ity of XL 100 mg 17:16: mouth [place] 24 hr 14 daily. Medical tablet Indication Branch s: hypertensi on sodium 2020-0 Yes PRN, Univers chloride -16 Starting ity of (NS) 16:36: Wed [place] injection 06/14/20 at [place] [id number], Branch Until Discontinu ed, Routine, Intra-op neomycin-po 2020-0 Yes PRN, Univer s lymyxin-dex -16 Starting ity of amethasone 16:36: Fri (MAXITROL) 06/14/[address] [facility] [address] [place] [address] mg/g-10,000 Until unit/g-0.1 Discontinu % ed, ophthalmic Routine, ointment Intra-op gentamicin 2020-0 Yes PRN, Univers injection -16 Starting ity of 16:36: Fri [place] 06/14/20 at [place] [id number], Branch Until Discontinu ed, AMARILYS, Intra-op dexamethaso 2020-0 Yes PRN, Univer s ne -16 Starting ity of (DECADRON 16:36: Fri [place] PHOSPHATE) 06/14/20 at Med ical injection 1136, Branch Until Discontinu ed, Routine, Intra-op ceFAZolin 2020-0 Yes PRN, Univers (ANCEF) 06-14 Starting ity of injection 16:35: Fri06/14/20 at [facility] 1135, Branch Until Discontinu ed, AMARILYS, Intra-op DUOVISC 2020-0 Yes PRN, Univers (DUOVISC 06-14 Starting ity of VISCO 16:26: Fri ELASTIC) 3 00 06/14/20 at [facility] ical %-4 %(0.5 1126, Branch mL) 1 % Until (0.55 mL) Discontinu intraocular ed, injection Routine, Intra-op carbachoL 2020-0 Yes PRN, Univers (MIOSTAT) 06-14 Starting ity of 0.01 % 16:26: Fri intraocular 00 06/14/20 at [place] injection 1126, Branch Until Discontinu ed, Routine, Intra-op Hyaluronida 2020-0 Yes PRN, Univer s se, Human 06-14 Starting ity of Recomb. 16:24: Fri (HYLENEX) 06/14/20 at [facility] injection 1124, Branch Until Discontinu ed, Routine, Intra-op eye block 2020-0 Yes PRN, Univers syringe 11 06-14 Starting ity o f mL 16:24: Fri06/14/20 at [facility] 1124, Branch Until Discontinu ed, Intra-op EPINEPHrine 2020-0 Yes PRN, Univer s 1:1,000 (1 06-14 Starting ity o f mg/mL) 16:24: Fri (ADRENALIN) 06/14/20 at [place] injection 1124, Branch Until Discontinu ed, Routine, Intra-op balanced 2020-0 Yes PRN, Univers salt irrig 06-14 Starting ity o f soln comb1 16:24: Fri (BSS PLUS) 06/14/20 at [facility] ical ophthalmic 1124, Branch solution Until 500 mL bag Discontinu ed, Routine, Intra-op Hyaluronida 2020-0 Yes PRN, Univer s se, Human 06-14 Starting ity of Recomb. 16:22: Fri [place] (HYLENEX) 06/14/20 at [facility] injection 1122, Branch Until Discontinu ed, Routine, [...] Fri Medica l 0.5 mL 06/14/20 at [place] syringe 1100, Routine, DSU Pre-op lactated 2020-0 2020- No 1000mL at 20 [facility] rs ringers IV 06-14 mL/hr, ity of infusion 15:15: 15:08 1,000 mL, Zachary as 1,000 mL 00 :00 IV Medical Infusion, [place] ONCE, 1 dose, 06/14/20 at 1015, Routine, DSU Pre-op losartan 50 2020-0 Yes 50mg Take 50 mg Univers mg tablet 9-14 by mouth ity of 19:41: daily. [place] [address] Indication Medical s: htn Branch ezetimibe 2020-0 Yes 10mg Take 10 mg Un rivka 10 mg 9-14 by mouth ity of tablet 19:41: at [place] [address] bedtime. Medical Indication Branch s: hyperlipid emia amLODIPine 2020-0 Yes 5mg Take 5 mg Un rivka 5 mg tablet 9-14 by mouth ity of 19:41: daily. [place] [address] Indication Medical s: htn Branch rosuvastati 2020-0 Yes 5mg Take 5 mg U nivers n 5 mg CpSP 9-14 by mouth ity of 19:41: at [place] [address] bedtime. Medical Indication Branch s: hyperlipid emia metoprolol 2020-0 Yes 100mg Take 100 Un rivka succinate 9-14 mg by ity of XL 100 mg 19:41: mouth [place] 24 hr 21 daily. Medical tablet Indication Branch s: hypertensi on losartan 50 2020-0 Yes 50mg Take 50 mg Univers mg tablet 05-31 by mouth ity of 18:43: daily. [place] 00 Indication Medical s: htn Branch ezetimibe 2020-0 Yes 10mg Take 10 mg Un rivka 10 mg 05-31 by mouth ity of tablet 18:43: at [place] 00 bedtime. Medical Indication Branch s: hyperlipid emia amLODIPine 2020-0 Yes 5mg Take 5 mg Un rivka 5 mg tablet 05-31 by mouth ity of 18:43: daily. [place] 00 Indication Medical s: htn Branch rosuvastati 2020-0 Yes 5mg Take 5 mg U nivers n 5 mg CpSP 05-31 by mouth ity of 18:43: at [place] 00 bedtime. Medical Indication Branch s: hyperlipid emia metoprolol 2020-0 Yes 100mg Take 100 Un rivka succinate 02 mg by ity of XL 100 mg 18:43: mouth [place] 24 hr 00 daily. Medical tablet Indication [...] 1,000 mL 00 :00 IV Medical Infusion, [place] ONCE, 1 dose, 05/31/20 at 1130, Routine, [...] ity of XL 100 mg 12:50: mouth [place] 24 hr 39 daily. Medical tablet Indication Branch s: hypertensi on metoprolol 2020-0 Yes 100mg Take 100 Un rivka succinate 9-01 mg by ity of XL 100 mg 12:50: mouth [place] 24 hr 39 daily. Medical tablet Indication Branch s: hypertensi on losartan 50 2020-0 Yes 50mg Take 50 mg Univers mg tablet -01 by mouth ity of 12:50: daily. [place] [address] Indication Medical s: htn Branch ezetimibe 2020-0 Yes 10mg Take 10 mg Un rivka 10 mg -01 by mouth ity of tablet 12:50: at [place] [address] bedtime. Medical Indication Branch s: hyperlipid emia amLODIPine 2020-0 Yes 5mg Take 5 mg Un rivka 5 mg tablet -01 by mouth ity of 12:50: daily. [place] [address] Indication Medical s: htn Branch rosuvastati 2020-0 Yes 5mg Take 5 mg U nivers n 5 mg CpSP -01 by mouth ity of 12:50: at [place] [address] bedtime. Medical Indication Branch s: hyperlipid emia losartan 50 2020-0 Yes 50mg Take 50 mg Univers mg tablet -01 by mouth ity of 12:50: daily. [place] [address] Indication Medical s: htn Branch ezetimibe 2020-0 Yes 10mg Take 10 mg Un rivka 10 mg 9-01 by mouth ity of tablet 12:50: at [place] [address] bedtime. Medical Indication Branch s: hyperlipid emia amLODIPine 2019-0 Yes 5mg Take 5 mg Un rivka 5 mg tablet -01 by mouth ity of 12:50: daily. [place] [address] Indication Medical s: htn Branch rosuvastati 2019-0 Yes 5mg Take 5 mg U nivers n 5 mg CpSP 9-01 by mouth ity of 12:50: at [place] [address] bedtime. Medical Indication Branch s: hyperlipid emia Vital Signs Vital Name Observation Time Observation Value Comments Source Systolic blood 2020-06-14 16:57:00 126 mm[Hg] Univer sity of pressure [facility] Diastolic blood 2020-06-14 16:57:00 70 mm[Hg] Unive rsity of [facility] Heart rate 2020-06-14 16:57:00 59 /min [facility] Body temperature 2020-06-14 16:57:00 36.67 [facility] Respiratory rate 2020-06-14 16:57:00 13 /min [facility] Oxygen saturation in 2020-06-14 16:57:00 93 /min University of Arterial blood by [place] TXCOM [facility] Pulse oximetry Branch Body height 2020-06-07 18:18:00 177.8 cm [facility] Body weight 2020-06-07 18:18:00 106.1 kg [facility] BMI 2020-06-07 18:18:00 33.56 kg/m2 [facility] Systolic blood 2020-05-31 18:30:00 141 mm[Hg] Univer sity of pressure [facility] Diastolic blood 2020-05-31 18:30:00 77 mm[Hg] Unive rsity of pressure [facility] Heart rate 2020-05-31 18:30:00 58 /min [facility] Respiratory rate 2020-05-31 18:30:00 15 /min [facility] Oxygen saturation in 2020-05-31 18:30:00 96 /min University of Arterial blood by [place] TXCOM owen Pulse oximetry Branch Body temperature 2020-05-31 18:18:00 36.78 Breanne [facility] Body height 2020-05-30 14:15:00 177.8 cm [facility] Body weight 2020-05-30 14:15:00 106.142 kg [facility] BMI 2020-05-30 14:15:00 33.58 kg/m2 [facility] Procedures Procedure Date / Time Performed Performing Clinician Sour e CONSENT/REFUSAL FOR 2020-06-13 15:47:44 [facility] Medical Branch TREATMENT ASSIGNMENT OF BENEFITS 2020-06-13 15:46:58 Doctor Unassigned, No [facility] NOTICE OF PRIVACY 2020-06-13 15:46:42 Doctor Unassigned, No [facility] CONSENT/REFUSAL FOR 2020-06-13 15:46:12 Doctor Unassigned, No [facility] Medical Branch TREATMENT ASSIGNMENT OF BENEFITS 2020-06-13 15:45:55 Doctor Unassigned, No [facility] ASSIGNMENT OF BENEFITS 2020-05-26 17:40:57 Doctor Unassigned, No [facility] Encounters Start End Encounter Admission Attending Care Care Encounter Source Date/Time Date/Time Type Type Clinicians Facility Department ID 2021-07-27 [id number] Univers 16:40:[address] [facility] 2021-07-27 [facility]ny [facility] [id number] Univers 15:10:[address] [facility] 2021-10-31 2021-10-31 Outpatient JUAN FRANCISCO Méndez [facility] [id number] [facility] 08:14:00 08:14:00 Anibal Akers [facility] 2020-06-14 2020-06-14 [facility] [id number] Univers 10:00:00 12:15:00 Encounter Alejo Navarro [id number] [place] [id number] [place] [id number] [facility] 071 Branch 2020-06-13 2020-06-13 Laboratory Only, Adc Test [facility] [id number] Univers 10:46:39 11:01:39 Only Owen [place] [id number] [place] [id number] [place] [id number] [address] 2020-06-13 2020-06-13 Outpatient R [facility] [id number] Univers 11:00:00 11:00:00 ity of [facility] 2020-05-31 2020-05-31 [facility] [id number] Univers 11:11:00 13:37:00 Encounter Alejo Navarro [id number] [place] [id number] [id number] [address] 2020-05-30 2020-05-30 Outpatient R [facility] [id number] Univers 09:30:00 09:30:00 ALEJO floresvalerie [facility] 2020-05-30 2020-05-30 Laboratory Only, Adc Test [facility] [id number] Univers 09:01:29 09:16:29 Only Alejo Tinajero Misael Navarro [id number] [place] [id number] [id number] [address] 2020-05-30 2020-05-30 Letter MARIA E Barnes [id number] Univers 00:00:00 00:00:00 (Out) Naina ROBLES [id number] it y of HOSPITAL [id number] [place] as [id number] [address] 2020-05-26 2020-05-26 Outpatient R [facility] [id number] Univers 13:00:00 13:00:00 ALEJO rey [facility] 2020-05-26 2020-05-26 [place] Ej, Adc Lab Main [facility] [id number] Univers 12:42:38 12:57:38 Visit Jorge Alejo Navarro [id number] [place] [id number] [id number] [address] 2020-05-26 2020-05-26 Orders Doctor MARIA E [id number] Univers 00:00:00 00:00:00 Only Unassigned, MARGARET [id number] ity of [place] [facility] [id number] [place] as [id number] [facility] 009 Branch Results This patient has no known results.
[2023-08-07] MEDS ORDERED: NA CHLORIDE 0.9% 500 ML ONE (04:24)
[2023-08-07] MEDS ORDERED: METOCLOPRAMIDE 10 MG/2mL INJ ONE (04:24)
[2023-08-07] MEDS ORDERED: PANTOPRAZOLE 40 MG INJ ONE (04:24)
[2023-08-07] MEDS ORDERED: CHLORPROMAZINE 25 MG TAB PO ONE (05:08)
[2023-08-07 05:18] LABS: Protime INR 1.14
[2023-08-07 05:19] LABS: Absolute Lymphocytes (CBC) 1.1 K/uL (0.7-4.9); Hematocrit 46.3 % (39.6-49.0); Lymphocytes % 15.6 % (15.3-44.8); MCV 87.5 fL (80-100); MPV 8.1 fL (7.6-11.3); Platelets 188 thou/uL (152-406); RBC Red Blood Cell Count 5.29 M/uL (4.33-5.43)
[2023-08-07 05:30] LABS: Albumin 4.2 g/dL (3.4-5.0); Bilirubin Direct 0.3 mg/dL (0-0.2); Bilirubin Indirect, Calculated 0.8 mg/dL (0.2-0.8); Bilirubin Total 1.1 mg/dL (0.2-1.0); Magnesium 2.2 mg/dL (1.6-2.4); Potassium 4.2 mEq/L (3.5-5.1); Protein, Total 7.1 g/dL (6.4-8.2); Troponin High Sensitivity 9.2 pg/mL (<58.9)
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
[2023-08-07 06:42] VITALS: TEMP 98.1; O2SAT 97
[2023-08-07 06:49] VITALS: BP 167/99
--- NOTE | 2023-08-07 07:51 | RAD REPORT ---
EXAM DESCRIPTION: Gali Single View08/07/2023 4:08 am CLINICAL HISTORY: Cough COMPARISON: May 2020. FINDINGS: Postsurgical changes involve chest Chronic opacity lateral mid to lower left hemithorax The lungs appear clear of acute infiltrate. The heart is normal size IMPRESSION: No acute abnormalities displayed
--- NOTE | 2023-08-09 14:17 | EKG ---
Test Date: 2023-08-07 Test Time: 05:52:52 [place] Hand: FAISAL MEASUREMENT RESULTS: Intervals: Rate: 69 FL: 198 QRSD: 108 QT: 412 QTc: 441 [place]: P: 55 FL: 198 QRS: 42 T: 91 INTERPRETIVE STATEMENTS: Normal sinus rhythm Normal ECG Compared to ECG 06/01/2023 19:20:34 Myocardial infarct finding no longer present Electronically Signed On 08-09-23 14:09:13 PERSONNEL MANAGER by Qasim Haas
== END 2023-08-07 06:23 | disposition home or self-care (01) ==
LOC: ER 03:45
DX: R06.6 Hiccough (principal); I10 Essential (primary) hypertension; Z88.8 Allergy status to other drugs, medicaments and biological substances
CPT/HCPCS: 93005; 85025; 80048; 36415; 83735; 85610; 80076; 84484; 83880; 71045; 96375; 96374; 99284; Q0161; J2765; C9113; J7040